=== PATIENT | male | born 1980 | race Asian ===

== ENCOUNTER → 2019-08-06 | Outpatient (CLI) | payer OTHER ==
[2019-08-06 19:37] LABS: BLOOD UREA NITROGEN 15 MG/DL (7-18); CREATININE FOR GFR 0.79 MG/DL (0.70-1.30); GLOMERULAR FILTRATION RATE > 60.0 (>60)
== END ==
LOC: M LAB 18:46
PROVIDERS: ATTEND Nurse Practitioner Family
DX: R43.2 Parageusia (principal); R43.0 Anosmia

== ENCOUNTER 2019-12-12 12:52 | Emergency (ER) | payer OTHER ==
[~2019-12-12] VITALS: Ht 175.3 cm; Wt 90.9 kg
[2019-12-12 13:35] LABS: BASO # 0.1 10^3/uL (0.0-0.2); BASO % 0.9 % (0.0-1.0); EOS # 0.4 10^3/uL (0.0-0.5); EOS % 5.3 % (0.0-3.0); HEMOGLOBIN 15.6 g/dl (13.5-17.5); LYMPH # 0.9 10^3/uL (1.5-5.0); MEAN CORPUSCULAR HEMOGLOBIN 30.3 pg (27.0-33.0); MEAN CORPUSCULAR HGB CONC 34.7 g/dl (32.0-36.5); MEAN CORPUSCULAR VOLUME 87.4 fl (80.0-96.0); MONO % 14.7 % (0.0-5.0); NEUTROPHILS # 4.3 10^3/uL (1.5-8.5); NEUTROPHILS % 64.6 % (36.0-66.0); PLATELET COUNT, AUTOMATED 247 10^3/uL (150-450); RED BLOOD COUNT 5.15 10^6/uL (4.30-6.10); WHITE BLOOD COUNT 6.6 10^3/uL (4.0-10.0)
[2019-12-12 14:02] LABS: BLOOD UREA NITROGEN 11 MG/DL (7-18); CARBON DIOXIDE LEVEL 27 MEQ/L (21-32); CHLORIDE LEVEL 103 MEQ/L (98-107); CREATININE FOR GFR 0.88 MG/DL (0.70-1.30); GLOMERULAR FILTRATION RATE > 60.0 (>60); GLUCOSE, FASTING 103 MG/DL (70-100); POTASSIUM SERUM 3.8 MEQ/L (3.5-5.1); SODIUM LEVEL 136 MEQ/L (136-145)
[2019-12-12] MEDS ORDERED: ISOVUE-370 76% 100ML VIAL (Q9967) As Ordered ONE (14:17)
--- NOTE | 2019-12-12 14:58 | REPVR ---
PROCEDURE INFORMATION: Exam: CT Angiography Head With Contrast Exam date and time: 12/12/2019 2:27 PM Age: 39 years old Clinical indication: Pain; Headache; Additional info: Syncope/headache TECHNIQUE: Imaging protocol: Computed tomography angiography of the head with intravenous contrast. 3D rendering: MIP and/or 3D reconstructed images were created by the technologist. Radiation optimization: All CT scans at this facility use at least one of these dose optimization techniques: automated exposure control; mA and/or kV adjustment per patient size (includes targeted exams where dose is matched to clinical indication); or iterative reconstruction. Contrast material: ISOVUE 370; Contrast volume: 75 ml; Contrast route: IV; COMPARISON: No relevant prior studies available. FINDINGS: Right internal carotid artery: Unremarkable. Intracranial segment is patent with no significant stenosis. No aneurysm. Right anterior cerebral artery: Unremarkable. No occlusion or significant stenosis. No aneurysm. Right middle cerebral artery: Unremarkable. No occlusion or significant stenosis. No aneurysm. Right posterior cerebral artery: Unremarkable. No occlusion or significant stenosis. No aneurysm. Right vertebral artery: Unremarkable. No occlusion or significant stenosis. No aneurysm. Left internal carotid artery: Unremarkable. Intracranial segment is patent with no significant stenosis. No aneurysm. Left anterior cerebral artery: Unremarkable. No occlusion or significant stenosis. No aneurysm. Left middle cerebral artery: Unremarkable. No occlusion or significant stenosis. No aneurysm. Left posterior cerebral artery: Unremarkable. No occlusion or significant stenosis. No aneurysm. Left vertebral artery: Unremarkable. No occlusion or significant stenosis. No aneurysm. Basilar artery: Unremarkable. No occlusion or significant stenosis. No aneurysm. Other vasculature: Cerebral venous structures are widely patent. There is a branching linear structure in left paramedian brady consistent with small developmental venous anomaly, typically incidental finding. IMPRESSION: No intracranial vascular stenosis or occlusion. Electronically signed by: Shira Saravia On 12/12/2019 14:58:02 PM
--- NOTE | 2019-12-12 14:58 | REPVR ---
PROCEDURE INFORMATION: Exam: CT Head Without Contrast Exam date and time: 12/12/2019 2:27 PM Age: 39 years old Clinical indication: Pain; Headache; Additional info: Syncope/headache TECHNIQUE: Imaging protocol: Computed tomography of the head without contrast. Radiation optimization: All CT scans at this facility use at least one of these dose optimization techniques: automated exposure control; mA and/or kV adjustment per patient size (includes targeted exams where dose is matched to clinical indication); or iterative reconstruction. COMPARISON: No relevant prior studies available. FINDINGS: Brain: There is no acute intracranial hemorrhage. No extra-axial fluid collection. No evidence of acute infarct. [place] white differentiation is intact. There is no evidence of mass. There is no mass effect or midline shift. Ventricles: There is a normal variant of a cavum septum pellucidum et vergae. Bones/joints: There is chronic concave fracture defect involving the left lamina papyracea. Sinuses: There is mucosal thickening in paranasal sinuses. Mastoid air cells: No significant mastoid effusion. Soft tissues: Unremarkable as visualized. IMPRESSION: No evidence of acute intracranial abnormality. [facility] Stroke Program Early CT Score (ASPECTS) = 10. Electronically signed by: Shira Saravia On 12/12/2019 14:58:18 PM
[2019-12-12] MEDS ORDERED: KETOROLAC 30 MG/ML VIAL (J1885) IV ONE (15:30)
[2019-12-12] MEDS ORDERED: AMIT-253 PO (15:41)
[2019-12-12 16:30] VITALS: BP 137/91
[2019-12-12] MEDS ORDERED: LOSA25TA14 PO (16:31)
--- NOTE | 2019-12-12 17:37 | ECGEPIP ---
[facility] - ED Test Date: 2019-12-12 Pat Name: MARILIA DONALD Department: Room: - Gender: Male Property Coordinator: : 1980 Requested By: Amalia Clay Order Number: [id number] Reading MD: Delbert Fregoso Measurements Intervals [place] Rate: 74 P: 23 WI: 180 QRS: 55 QRSD: 97 T: 8 QT: 392 QTc: 436 Interpretive Statements SINUS RHYTHM POOR R WAVE PROGRESSION NSTTW ABNORMALITIES NO PRIORS FOR COMPARISON Electronically Signed on 12-12-2019 17:36:41 EST by Delbert Fregoso
== END 2019-12-12 17:06 | disposition home or self-care (01) ==
LOC: EDBD 12:52 → M ED 12:52
DX: R51 Headache (principal); R55 Syncope and collapse; I10 Essential (primary) hypertension; Z79.899 Other long term (current) drug therapy
CPT/HCPCS: 70450; 70496; 80048; 85025; 93005; 93041; 96374; 99285; J1885; Q9967

== ENCOUNTER 2021-05-19 12:10 | Emergency (ER) | payer OTHER ==
[~2021-05-19] VITALS: Ht 170.2 cm; Wt 90.9 kg
[~2021-05-19 12:10] MED LIST: AMIT-253 PO; LOSA25TA14 PO
[2021-05-19] MEDS ORDERED: LEXA5TAB13 (12:24)
[2021-05-19] MEDS ORDERED: ESZO1TAB4 (12:24)
[2021-05-19 12:45] LABS: HEMATOCRIT 45.6 % (42.0-52.0); HEMOGLOBIN 15.7 g/dl (13.5-17.5); MEAN CORPUSCULAR HEMOGLOBIN 29.8 pg (27.0-33.0); MEAN CORPUSCULAR HGB CONC 34.4 g/dl (32.0-36.5); MEAN CORPUSCULAR VOLUME 86.7 fl (80.0-96.0); PLATELET COUNT, AUTOMATED 238 10^3/uL (150-450); RED BLOOD COUNT 5.26 10^6/uL (4.30-6.10)
[2021-05-19 13:27] LABS: ACETAMINOPHEN LEVEL < 2.0 UG/ML (10.0-30.0); ALBUMIN 4.3 GM/DL (3.2-5.2); ALT/SGPT 126 U/L (12-78); BILIRUBIN,DIRECT 0.2 MG/DL (0.0-0.2); BILIRUBIN,TOTAL 0.6 MG/DL (0.2-1.0); BLOOD UREA NITROGEN 11 MG/DL (7-18); CALCIUM LEVEL 9.4 MG/DL (8.5-10.1); CARBON DIOXIDE LEVEL 27 MEQ/L (21-32); CHLORIDE LEVEL 105 MEQ/L (98-107); CREATININE FOR GFR 0.88 MG/DL (0.70-1.30); ETHYL ALCOHOL (ETHANOL) < 0.003 % (0.000-0.010); GLOMERULAR FILTRATION RATE > 60.0 (>60); GLUCOSE, FASTING 105 MG/DL (70-100); SALICYLATE LEVEL < 1.7 MG/DL (5.0-30.0); SODIUM LEVEL 139 MEQ/L (136-145); TOTAL PROTEIN 8.1 GM/DL (6.4-8.2)
[2021-05-19 14:17] LABS: AMPHETAMINES LEVEL URINE NEGATIVE (NEGATIVE); BARBITURATES URINE NEGATIVE (NEGATIVE); BENZODIAZEPINES URINE NEGATIVE (NEGATIVE); CANNABINOIDS URINE NEGATIVE (NEGATIVE); COCAINE METABOLITE URINE NEGATIVE (NEGATIVE); METHADONE URINE NEGATIVE (NEGATIVE); OPIATES URINE NEGATIVE (NEGATIVE); PHENCYCLIDINE URINE NEGATIVE (NEGATIVE)
[2021-05-19 16:51] VITALS: BP 158/91
== END 2021-05-19 16:52 | disposition home or self-care (01) ==
LOC: M ED 12:10
DX: F43.0 Acute stress reaction (principal); I10 Essential (primary) hypertension; G43.909 Migraine, unspecified, not intractable, without status migrainosus; Z79.899 Other long term (current) drug therapy

== ENCOUNTER 2021-12-28 08:58 | Emergency (ER) | payer OTHER ==
[~2021-12-28] VITALS: Ht 165.1 cm; Wt 88.2 kg
[~2021-12-28 08:58] MED LIST changes: +ESZO1TAB4; +LEXA5TAB13; +LOSA25TA13 PO; -LOSA25TA14 PO
[2021-12-28] MEDS ORDERED: OXYMETAZOLINE 0.05% NASAL SPRAY (AFRIN) ONE (09:10)
[2021-12-28] MEDS ORDERED: VERA40TA (09:15)
[2021-12-28] MEDS ORDERED: SILVER NITRATE APPLICATOR TOP ONE (09:30)
[2021-12-28] MEDS ORDERED: hydrALAZINE 20MG/ML 1ML VIAL (J0360 PER 20MG) IV ONE (10:10)
[2021-12-28] MEDS ORDERED: EPINEPHrine INJ 1 MG/ML 1ML AMP IR STA (10:13)
[2021-12-28] MEDS ORDERED: LIDOCAINE W/EPINEPHRINE 1% 20ML VIAL SC ONE (10:15)
[2021-12-28 10:31] LABS: BASO # 0.1 10^3/uL (0.0-0.2); BASO % 0.8 % (0.0-1.0); EOS # 0.5 10^3/uL (0.0-0.5); EOS % 7.9 % (0.0-3.0); HEMATOCRIT 43.2 % (42.0-52.0); HEMOGLOBIN 14.8 g/dl (13.5-17.5); LYMPH # 1.6 10^3/uL (1.5-5.0); LYMPH % 25.6 % (24.0-44.0); MEAN CORPUSCULAR HEMOGLOBIN 29.8 pg (27.0-33.0); MEAN CORPUSCULAR HGB CONC 34.3 g/dl (32.0-36.5); MEAN CORPUSCULAR VOLUME 87.1 fl (80.0-96.0); MONO # 0.4 10^3/uL (0.0-0.8); NEUTROPHILS # 3.6 10^3/uL (1.5-8.5); NEUTROPHILS % 58.4 % (36.0-66.0); PLATELET COUNT, AUTOMATED 260 10^3/uL (150-450); RED BLOOD COUNT 4.96 10^6/uL (4.30-6.10); WHITE BLOOD COUNT 6.1 10^3/uL (4.0-10.0)
[2021-12-28 10:48] LABS: INR 1.02; PROTHROMBIN TIME 13.8 SECONDS (12.7-14.5)
[2021-12-28 10:49] LABS: BLOOD UREA NITROGEN 14 MG/DL (7-18); CALCIUM LEVEL 9.6 MG/DL (8.5-10.1); CARBON DIOXIDE LEVEL 26 MEQ/L (21-32); CHLORIDE LEVEL 110 MEQ/L (98-107); CREATININE FOR GFR 0.86 MG/DL (0.70-1.30); GLOMERULAR FILTRATION RATE > 60.0 (>60); GLUCOSE, FASTING 132 MG/DL (70-100); SODIUM LEVEL 140 MEQ/L (136-145)
[2021-12-28 10:50] LABS: PARTIAL THROMBOPLASTIN TIME 32.9 SECONDS (25.9-37.0)
[2021-12-28 12:51] VITALS: BP 134/85
== END 2021-12-28 12:59 | disposition home or self-care (01) ==
LOC: M ED 08:58 → EDBD 08:58 → M ED 12:59
DX: R04.0 Epistaxis (principal); I10 Essential (primary) hypertension; Z79.899 Other long term (current) drug therapy
CPT/HCPCS: 30901; 80048; 85025; 85610; 85730; 86850; 93041; 99285; J0171